=== PATIENT | male | born 1990 | race Caucasian/White ===

== ENCOUNTER 2020-07-16 14:38 | Emergency (ER) | payer OTHER ==
[2020-07-16] MEDS ORDERED: CYCLOBENZAPRINE 10 MG TABLET PO STA (15:25)
[2020-07-16] MEDS ORDERED: IBUPROFEN 800 MG TABLET PO STA (15:25)
[2020-07-16] MEDS ORDERED: traMADol 50 MG TABLET PO STA (15:25)
--- NOTE | 2020-07-16 15:30 | ED Physician Documentation ---
History of Present Illness - Stated complaint Stated Complaint: NECK PX - Chief complaint Chief Complaint: Back Pain - History obtained from History obtained from: Patient - Additonal information Additional information: Patient comes emergency department chief complaint of increasing neck pain and tightness on the left side over the course of the day. He states he woke up feeling fine and did not have any distinct injury. He states that he began to notice little tightness in his neck and then just got worse and worse over the course of the day. He states that whenever he tries to turn his head to the left he feels a sharp pain adjacent to his mid spine and that it feels as though he just cannot make his head turned that way. 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 States has been trying to get MRI through the [employer] and that it has been very difficult. Patient denies any numbness or tingling in his upper extremities. He is otherwise healthy. No other complaints at this time. Review of Systems Ten Systems: 10 systems reviewed and negative Constitutional: reports: Reviewed and negative Eyes: reports: Reviewed and negative Ears: reports: Reviewed and negative Nose: reports: Reviewed and negative Throat: reports: Reviewed and negative Cardiac: reports: Reviewed and negative Respiratory: reports: Reviewed and negative GI: reports: Reviewed and negative : reports: Reviewed and negative Skin: reports: Reviewed and negative Musculoskeletal: reports: Neck pain Neurologic: reports: Reviewed and negative Psychiatric: reports: Reviewed and negative Endocrine: reports: Reviewed and negative Immunocompromised: reports: Reviewed and negative PD PAST MEDICAL HISTORY - Past Medical History Past Medical History: No - Past Surgical History Past Surgical History: Yes General: Appendectomy HEENT: Tonsil/Adenoidectomy - Present Medications Home Medications: Ambulatory Orders Medication Instructions Recorded Confirmed Cyclobenzaprine [Flexeril] 10 mg PO TID PRN #20 tablet 07/16/20 Ibuprofen [Motrin] 800 mg PO Q8H PRN #30 tablet 07/16/20 Multivitamin 1 tab ORAL DAILY 07/16/20 07/16/20 Sertraline HCl [Zoloft] 100 mg PO DAILY 07/16/20 07/16/20 traMADol [Ultram] 50 mg PO ONCE PRN #20 tablet 07/16/20 - Allergies Allergies/Adverse Reactions: Allergies Allergy/AdvReac Type Severity Reaction Status Date / Time Sulfa (Sulfonamide Allergy Rash Verified 07/16/20 14:41 Antibiotics) - Social History Does the pt smoke?: No Smoking Status: Never smoker Does the pt drink ETOH?: No Does the pt have substance abuse?: No - Immunizations Immunizations are current?: Yes - POLST Patient has POLST: No PD ED PE NORMAL - Vitals Vital signs reviewed: Yes - General General: Alert and oriented X 3, No acute distress, Well developed/nourished - HEENT HEENT: Atraumatic, PERRL, EOMI, Moist mucous membranes - Neck Neck: Supple, no meningeal sign - Cardiac Cardiac: RRR, No murmur, Strong equal pulses - Respiratory Respiratory: No respiratory distress, Clear bilaterally - Abdomen Abdomen: Soft, Non tender, Non distended - Back Back: No spinal TTP, Other (Left cervical paraspinal muscular tenderness.) - Derm Derm: Normal color, Warm and dry, No rash - Extremities Extremities: No deformity, No edema - Neuro Neuro: Alert and oriented X 3, certified nurses aide 2-12 intact, No motor deficit, No sensory deficit, Normal speech - Psych Psych: Normal mood, Normal affect Results - Vitals Vitals: Vital Signs - 24 hr 07/16/20 14:42 Temperature 36.4 C L Heart Rate 70 Respiratory 16 Rate Blood Pressure 114/67 O2 Saturation 99 Oxygen O2 Source Room air PD MEDICAL DECISION MAKING - ED course Complexity details: considered differential, d/w patient ED course: I discussed with the patient that his symptoms are most consistent with muscle spasm, and that I do not find evidence of an acute spinal injury. This is highly unlikely so, considering that the patient did not have a distinct trauma. I discussed with him that the imaging modality that would be most helpful is MRI, and although this is not indicated emergently today, he should talk to his primary care physician about potentially having this done. The patient has a ride home, and I have given him doses of Flexeril, ibuprofen, and tramadol. I will give him the same for home use. We have discussed symptoms which would be indications for return to the emergency department. Departure - Departure Disposition: 01 Home, Self Care Clinical Impression: Torticollis, acute Condition: Stable Instructions: ED Spasm Neck No Injury Prescriptions: Cyclobenzaprine [Flexeril] 10 mg PO TID PRN #20 tablet PRN Reason: Spasms Ibuprofen [Motrin] 800 mg PO Q8H PRN #30 tablet PRN Reason: PAIN &/OR FEVER traMADol [Ultram] 50 mg PO ONCE PRN #20 tablet PRN Reason: Pain
[2020-07-16 15:53] VITALS: BP 118/82
== END 2020-07-16 15:55 | disposition home or self-care (01) ==
LOC: ED 14:38
DX: M43.6 Torticollis (principal)
CPT/HCPCS: 99282; 99284; A9270

== ENCOUNTER 2020-08-06 14:17 | Emergency (ER) | payer OTHER ==
[2020-08-06 14:28] VITALS: BP 126/74
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
--- OUTSIDE RECORDS SUMMARY | 2020-08-09 02:44 | EXTERNAL MEDICAL SUMMARY RPT | Continuity of Care Document ---
:1990 Demographics Phone Unavailable Preferred Language Unknown Marital Status Unknown Yazidi Affiliation Unknown Race Unknown Ethnic Group Unknown Author Organization [facility] Address [address] [place] [address] Phone Social History date description facility [id number]
== END 2020-08-06 14:55 | disposition home or self-care (01) ==
LOC: ED 14:17
DX: S01.01XA Laceration without foreign body of scalp, initial encounter (principal); W20.8XXA Other cause of strike by thrown, projected or falling object, initial encounter; Y93.89 Activity, other specified
CPT/HCPCS: 12011; 99282

== ENCOUNTER 2021-03-05 09:28 | Emergency (ER) | payer OTHER ==
--- NOTE | 2021-03-05 11:05 | XRAY Report ---
PROCEDURE: Tib/Fib LT INDICATIONS: Trauma TECHNIQUE: 2 views of the tibia and fibula were acquired. COMPARISON: None FINDINGS: Bones: No fractures or dislocations. No suspicious bony lesions. Soft tissues: No suspicious soft tissue calcifications or masses. IMPRESSION: No visualized acute fracture or dislocation. However, occult injury cannot be excluded. Recommend irving rt interval imaging follow-up in 7-10 days as clinically indicated for additional evaluation. Reviewed by: Belen Shepherd MD on 03/05/2021 11:04 AM PDT Approved by: Belen Shepherd MD on 03/05/2021 11:04 AM PDT Station ID: [id number]
[2021-03-05] MEDS ORDERED: BACITRACIN ZINC OINT 1 PACKET TOP STA (12:17)
--- NOTE | 2021-03-05 12:20 | ED Physician Documentation ---
PD HPI LOWER EXT INJURY - Stated complaint Stated Complaint: LEFT LEG PX - Chief complaint Chief Complaint: Trauma Ext - History obtained from History obtained from: Patient - History of Present Illness PD HPI LOW EXT INJURY LOCATION: Left, Lower leg Type of injury: Fall, Other (hit his leg on the edge of a deck) Where injury occurred: Home Pain level max: 6 Pain level now: 5 Improved by: Rest Worsened by: Moving, Palpating Contributing factors: No: Anticoagulated Recently seen: Not recently seen - Additional information Additional information: Patient is a 30-year-old male who presents to the emergency department with pain to the anterior aspect of the left lower leg. He states he slipped on a deck this morning and hit his hammond on the deck along the way down. He complains of an abrasion to the site as well as pain that is worse with walking and movement. Tetanus up-to-date. Not anticoagulated. No other injuries. Review of Systems Constitutional: denies: Fever GI: denies: Vomiting, Diarrhea Skin: denies: Rash Musculoskeletal: denies: Neck pain, Back pain Neurologic: denies: Headache PD PAST MEDICAL HISTORY - Past Medical History Past Medical History: Yes Cardiovascular: None Respiratory: None Neuro: None Endocrine/Autoimmune: None GI: None : None HEENT: None Psych: Depression, Anxiety Musculoskeletal: None Derm: None - Past Surgical History Past Surgical History: Yes General: Appendectomy HEENT: Tonsil/Adenoidectomy - Present Medications Home Medications: Ambulatory Orders Medication Instructions Recorded Confirmed Multivitamin 1 tab ORAL DAILY 07/16/20 03/05/21 Sertraline HCl [Zoloft] 100 mg PO DAILY 07/16/20 03/05/21 - Allergies Allergies/Adverse Reactions: Allergies Allergy/AdvReac Type Severity Reaction Status Date / Time Sulfa (Sulfonamide Allergy Rash Verified 03/05/21 09:51 Antibiotics) - Social History Does the pt smoke?: No Smoking Status: Never smoker Does the pt drink ETOH?: No Does the pt have substance abuse?: No - Immunizations Immunizations are current?: Yes - POLST Patient has POLST: No PD ED PE NORMAL - Vitals Vital signs reviewed: Yes - General General: Alert and oriented X 3, No acute distress, Well developed/nourished - HEENT HEENT: Moist mucous membranes - Neck Neck: Supple, no meningeal sign - Derm Derm: Warm and dry - Extremities Extremities: Other (Abrasion to the anterior aspect of the left hammond. Tenderness along the anterior tibia. Neurovascularly intact. Otherwise normal examination of the left lower extremity) - Neuro Neuro: Alert and oriented X 3 - Psych Psych: Normal mood, Normal affect Results - Vitals Vitals: Vital Signs - 24 hr 03/05/21 09:52 Temperature 36.4 C L Heart Rate 62 Respiratory 16 Rate Blood Pressure 113/71 O2 Saturation 97 Oxygen O2 Source Room air - Rads (name of study) Left lower extremity x-ray Radiology: Final report received, EMP read contemporaneously, See rad report (No acute abnormality) PD MEDICAL DECISION MAKING - ED course Complexity details: reviewed results, re-evaluated patient, considered differential, d/w patient ED course: Wounds were cleansed and bandaged. No acute findings on x-ray. Patient declines crutches or pain medication. We will prescribe him light duty at work. Patient counseled regarding signs and symptoms for which I believe and urgent re-evaluation would be necessary. Patient with good understanding of and agreement to plan and is comfortable going home at this time This document was made in part using voice recognition software. While efforts are made to proofread this document, sound alike and grammatical errors may occur. Departure - Departure Disposition: 01 Home, Self Care Clinical Impression: Contusion of soft tissue, Abrasion Condition: Good Instructions: ED Abrasion, ED Contusion Soft Tissue Follow-Up: ORLANDO BELLAMY MD [Primary Care Provider] - Comments: Thankfully there are no fractures on your x-ray today. Please follow-up with your doctor in 1 week if you are still having pain. This will be very sore for the next few days. Return if you worsen. Keep the wound clean. Return for redness, swelling or drainage from the wound. Forms: Activity restrictions
[2021-03-05 12:39] VITALS: BP 127/74
== END 2021-03-05 12:40 | disposition home or self-care (01) ==
LOC: ED 09:28
DX: S80.12XA Contusion of left lower leg, initial encounter (principal); W01.198A Fall on same level from slipping, tripping and stumbling with subsequent striking against other object, initial encounter; Y92.009 Unspecified place in unspecified non-institutional (private) residence as the place of occurrence of the external cause
CPT/HCPCS: 73590; 99282; 99283; A9270

== ENCOUNTER 2021-09-10 19:17 | Emergency (ER) | payer OTHER ==
[2021-09-10] MEDS ORDERED: AMOX/CLAV 875 MG/125 MG TABLET PO STA (19:32)
[2021-09-10] MEDS ORDERED: LIDOCAINE 1%-EPI 1:100000 20 ML MDV SUBQ STA (19:33)
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
[2021-09-10 21:24] VITALS: BP 125/71
--- NOTE | 2021-09-10 22:31 | XRAY Report ---
PROCEDURE: Hand 3 View RT INDICATIONS: rooster brandy injury TECHNIQUE: 3 views of the right hand acquired. COMPARISON: None. FINDINGS: Bones: No fractures or dislocations. No suspicious bony lesions. Soft tissues: No radiopaque foreign bodies. No suspicious soft tissue calcifications. IMPRESSION: 1. No fracture or radiopaque foreign bodies. Reviewed by: Bacilio Urena MD on 09/10/2021 10:30 PM PDT Approved by: Bacilio Urena MD on 09/10/2021 10:30 PM PDT Station ID: [id number]
== END 2021-09-10 21:22 | disposition home or self-care (01) ==
LOC: ED 19:17
DX: S61.431A Puncture wound without foreign body of right hand, initial encounter (principal); W61.32XA Struck by chicken, initial encounter; Y93.K9 Activity, other involving animal care
CPT/HCPCS: 73130; 99283; A9270

== ENCOUNTER 2021-11-01 14:10 | Outpatient (CLI) | payer OTHER ==
[2021-11-01 14:50] VITALS: BP 138/98
--- NOTE | 2021-11-01 14:50 | SLEEP CARE CONSULTATION ---
Information from patient questionnaire entered by Donovan Nicolas MA. I have reviewed and concur with the information entered by Donovan Nicolas MA. This document represents the service I personally performed and the decisions made by me, Val Jang ARNP. History of Present Illness Service Date and Time: 11/01/2021 1410 Reason for Visit: New patient (ONSET 05/05/2011, NO PRIORS, ) Chief Complaint: reports: Unrefreshed sleep, Snoring, Excessive daytime sleep iness Date of Onset: 5-6 YEARS Usual bedtime: 930 PM Time it takes to fall asleep: 5-15 MINUTES Snores at night: Yes Observed to quit breathing while asleep: Yes (POSSIBLY) Sleeps alone due to snoring: No Number of times waking at night: 1-2 Reasons for waking at night: reports: Other (unknown reason) Toss, Turn, or Twitch while sleeping: Yes Recalls having dreams: No Usually gets out of bed at: 0500; 5-6 on weekends Feels refreshed in the morning: No Morning headache: No Sleepy or fatigued during the day: Yes Ever fallen asleep while driving: Yes (drowsy driving; no accidents) Takes day naps: Yes (1 x a week for about 20-60 minutes) Dreams during day naps: No Prior sleep studies: No Additional HPI information: I had the pleasure of seeing JAYMIE FOSTER today regarding the possibility of him having a sleep disorder. His current complaints are unrefreshed sleep, snoring and excessive daytime sleepiness. He states for a long time he has not slept well. He states that sometimes he feels he "blinks" and is awake the next morning and he does not think he slep. He does not feel rested when he gets up in the morning. He cannot remember the last time he felt refreshed after sleep. He feels tired throughout the day. He does wake up a few times a night but states there are no known reasons. He limits his fluids before bed to reduce bathroom needed at night. He has a history of anxiety, depression and PTSD. He is on Zoloft. - Parasomnia Symptoms Ever been unable to move upon waking from sleep: No Walks in sleep: No Talks in sleep: Yes (SOMETIMES) Ever acted out dreams in sleep: No Ever felt weak in the knees when startled or emotional: No Bothered by creepy, crawly, restless sensations in legs: No Problems with memory or concentration: Yes (both) Subjective Initial [place] Sleepiness Scale score: 17 (11/01/2021) Past Medical History Past Medical History: reports: Anxiety, Depression, Other (PTSD) Social History The patient's occupation is a AM. Patient is and lives in [place]. Have you smoked in the past 12 months: No Alcohol use: Yes Alcohol amount and frequency: 1 X MONTHLY Caffeine use: Yes Caffeine amount and frequency: 2-3 DAILY Family History Family history of sleep disordered breathing: Yes Family Hx Sleep Apnea: Father: Snoring, Grandparent: Snoring Allergies and Home Medications Known drug allergies: Yes (SULFA) Drug allergies reviewed: Yes Home medication list reviewed: Yes Allergy and home medication list: Allergies Sulfa (Sulfonamide Antibiotics) Allergy (Verified 09/10/21 19:27) Rash Medications: Zoloft Multivitamin Review of Systems Weight gain over past 5 years: 25 lbs Cardiovascular: denies: high blood pressure Gastrointestinal: denies: heartburn Neurological: denies: headaches, head trauma Psychiatric: reports: anxiety, depression, other (PTSD) Ear/Nose/Throat: reports: tonsillectomy, wisdom teeth removed. denies: injury to nose Endocrine: reports: sluggishness, too hot or cold Musculoskeletal: reports: back pain Physical Exam Vital signs obtained and entered by: Miles NICOLAS CMA AAMS Blood Pressure: 138/98 (RES 18, PULSE 68, RIGHT) Cuff size: wrist Heart Rate: 66 O2 Saturation: 97 (CLOTH MASK) Height: 6 ft Weight: 178 lb (CLOTHES) Weight change since last visit: MAINTAINING WEIGHT Body Mass Index: 24.1 BMI Classification: Healthy weight Neck circumference: 14 (INCHES) Mouth and throat: normal Soft palate: normal Hard palate: arched Uvula: normal Uvula visualization: 100% Mallampati Class I Tongue: enlarged in size with teeth bustillos on lateral edges Neck: normal w/o lymphadenopathy or thyromegaly Heart: regular rate and rhythm Lungs: clear bilaterally Impression and Plan 1. Suspected Obstructive Sleep Apnea-Hypopnea Syndrome, as suggested by a histo ry of loud and irregular snoring, unrefreshed sleep, cognitive impairment, and excessive daytime sleepiness. Narrow oropharynx and obesity are common predisposing factors for obstructive sleep apnea-hypopnea syndrome. I recommend proceeding to polysomnography to confirm the diagnosis and to assess severity. If the patient has significant sleep disordered breathing, a manual CPAP titration study will also be performed to find the optimal treatment pressure. I informed the patient of what the sleep studies involve and after some discussion, obtained agreement to proceed. The pathophysiology of obstructive sleep apnea-hypopnea syndrome was discussed with the patient and health risks of cardiovascular and cerebrovascular disease if not treated. Risks of drowsy driving discussed in detail and patient advised to avoid long distance driving and to puller through at the first sign of drowsiness. Patient agreed to plan. * Schedule polysomnography * Avoid long distance driving or driving when feeling sleepy. * Avoid alcohol, sedative and muscle relaxant around bedtime. * Attempt to lose weight. * Review instructions provided by trained office staff on how to prepare for the sleep study. * Return for follow-up after sleep study completed. Counseling Topics: Weight control Visit Type: In Office Time Spent with Patient (minutes): 30 Provider Statement: I spent 100% of the Face to Face Visit with the patient with greater than 50% spent counseling the patient and coordination of care.
== END 2021-11-01 14:11 | disposition home or self-care (01) ==
LOC: SC 14:10
PROVIDERS: ATTEND Nurse Practitioner Family
DX: R06.83 Snoring (principal); G47.8 Other sleep disorders; F32.A Depression, unspecified
CPT/HCPCS: 99203; 99212

== ENCOUNTER 2021-11-23 12:51 | Outpatient (CLI) | payer OTHER ==
[2021-11-23 13:27] VITALS: BP 156/92
--- NOTE | 2021-11-23 13:27 | SLEEP CARE CONSULTATION ---
Information from patient questionnaire entered by Donovan Guadalupe MA. I have reviewed and concur with the information entered by Donovan Guadalupe MA. This document represents the service I personally performed and the decisions made by , Val Jang ARNP. History of Present Illness Service Date and Time: 11/23/2021 1251 Initial [place] Sleepiness Scale score: 17 (11/01/2021) Current [place] Sleepiness Scale score: 15 (11/23/21) Additional HPI information: JAYMIE FOSTER returns for follow up and results of the recently performed polysomnography. I explained the pathophysiology behind obstructive sleep apnea. We then spent quite a bit of time discussing different treatment options. For mild obstructive sleep apnea, surgery and oral appliance are alternatives to nasal CPAP therapy but in moderate or severe cases, nasal CPAP is the most effective and reliable treatment. Because apnea is primarily in supine position, then positional management therapy could be effective. Methods discussed such as positioning with pillows to prevent supine sleep. I reviewed the impact of weight changes on sleep apnea and strongly recommended losing weight. After some discussion, the patient opted to go with the nasal CPAP therapy. Nasal autoCPAP set at 4-15 cmH20 will be ordered with rationale explained. A manual titration study will be ordered if unable to find optimal pressure with office adjustments. I explained how CPAP machine works and what to expect when using the machine. Using CPAP every night in order to get used to it was emphasized. Patient advised to put CPAP mask on before getting into bed so as not to fall asleep without CPAP. To assist acclimation to CPAP use, it could also be used for a short time during day while reading or watching TV. The patient was instructed to call the CPAP supplier to discuss any mechanical problem that may occur. If the mask given is uncomfortable or is difficult to keep on through the night even with adjustment, contact the CPAP supplier as many will replace with an other mask style if notified before 30 days. If snoring or perceives is not getting enough air or too much air from the machine, notify this office. Patient does not drink alcohol. Patient was cautioned about risks of drowsy driving until sleepiness symptoms resolve. Sleep Study - Results Type of Sleep Study: Polysomnography (F/U POLY, 11/11/2021, POS) Prior sleep studies: No Polysomnography/Home Sleep Study results: IMPRESSION: The quality of the study is good. The patient had normal sleep efficiency. The sleep architecture was abnormal for sleep fragmentation and reduced amount of time spent in slow wave sleep (N3). Respiratory monitoring showed mild obstructive sleep apnea-hypopnea (AHI = 5.1) associated with frequent arousals, oxyhemoglobin desaturation and mild hypoxia ([place] oxygen saturation of 88%). The respiratory events occurred almost exclusively during supine sleep (supine AHI = 6.8; non-supine = 1.55). Snore was light to moderate in intensity. There was no significant periodic leg movement of sleep. Cardiac rhythm was normal sinus rhythm without significant arrhythmia. No abnormal behavior (parasomnia) observed during the night. Allergies and Home Medications Home medication list reviewed: Yes (Wellbutrin 150 mg) Allergy and home medication list: Allergies Sulfa (Sulfonamide Antibiotics) Allergy (Verified 09/10/21 19:27) Rash Review of Systems Review of systems same as previous: Yes (no changes) Physical Exam Vital signs obtained and entered by: MARIAH FIGUEROA Blood Pressure: 156/92 (RESP 22, PULSE 68, RIGHT) Heart Rate: 70 O2 Saturation: 98 (N95) Height: 6 ft Weight: 180 lb (CLOTHES) Weight change since last visit: MAINTAIN Body Mass Index: 24.4 BMI Classification: Healthy weight Impression and Plan 1. Obstructive Sleep Apnea-Hypopnea Syndrome, mild, with lowest oxygen saturation of 88%. Obviously this is the cause of the patients symptoms of unrefreshed sleep, and excessive daytime sleepiness. Positive pressure therapy c ould benefit anxiety, depression and mood disorder (PTSD). As mentioned above, the patient will be started on nasal autoCPAP therapy with pressure set at 4-15 cmH2O. Compliance guidelines also reviewed. A copy of compliance guidelines will be given for reference at check out. Because the apnea is more severe supine, I instructed to avoid sleeping supine using pillow positioning until able to start CPAP use. * Nasal auto CPAP therapy, pressure at 4-15 cm H2O. * Avoid alcohol consumption near bedtime. * Avoid supine sleep until using CPAP. * The patient is again cautioned about driving until sleepiness completely resolves. * Return one month after CPAP obtained. I will assess response to therapy and compliance at that time. Counseling Topics: Sleeping position Visit Type: In Office Provider Statement: I spent 100% of the Face to Face Visit with the patient with greater than 50% spent counseling the patient and coordination of care.
== END 2021-11-23 12:52 | disposition home or self-care (01) ==
LOC: SC 12:51
PROVIDERS: ATTEND Nurse Practitioner Family
DX: G47.33 Obstructive sleep apnea (adult) (pediatric) (principal)
CPT/HCPCS: 99212; 99213

== ENCOUNTER 2022-03-25 14:41 | Outpatient (CLI) | payer OTHER ==
--- NOTE | 2022-03-25 19:15 | MRI Report ---
PROCEDURE: LUMBAR SPINE WO INDICATIONS: CHRONIC PAIN TECHNIQUE: Noncontrast sagittal T1 spin echo and T2 fast echo, sagittal STIR, axial T1 and T2 fast spin echo thr ough the lumbar spine. In cases with scoliosis, additional coronal T2 fast spin echo may be performe d. COMPARISON: None. FINDINGS: Image quality: Excellent. Alignment and Curvature: There is normal bony alignment. Bone Marrow: Marrow is of normal overall signal. No acute vertebral body compression fractures. Spinal Cord: Conus medullaris terminates at the L1 level. Visualized cord demonstrates normal signa l and size. Paraspinous Soft Tissues: No paravertebral masses. T12-L1: Normal in appearance. L1-L2: Normal in appearance. L2-L3: Normal in appearance. L3-L4: Normal in appearance. L4-L5: The disc height is well-preserved. There is loss of disc signal seen. Minimal disc bulge c an be seen at this level. Minimal central canal narrowing is seen. A minimal degree of facet arthropa thy is seen. Mild to moderate bilateral neuroforaminal narrowing can be seen, right worse than left. The central canal is widely patent. L5-S1: Mild loss of disc height and disc signal are seen. Minimal disc bulge is seen, with a slig ht central disc protrusion. Note is made of an annular fissure posteriorly. Minimal facet hypertrop hy is seen. There is moderate left-sided and at least moderate right-sided neuroforaminal narrowing. The central canal is widely patent. 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 Reviewed by: Jimenez Brooks MD on 03/25/2022 6:14 PM [facility] Approved by: Jimenez Brooks MD on 03/25/2022 6:14 PM [facility] Station ID: [id number]
== END 2022-03-25 14:42 | disposition home or self-care (01) ==
LOC: DI 14:41
PROVIDERS: ATTEND Family Medicine
DX: M51.36 Other intervertebral disc degeneration, lumbar region (principal); M51.37 Other intervertebral disc degeneration, lumbosacral region; M47.817 Spondylosis without myelopathy or radiculopathy, lumbosacral region; M47.816 Spondylosis without myelopathy or radiculopathy, lumbar region; G89.29 Other chronic pain